=== PATIENT | female | born 1995 | race Two or more races ===

== ENCOUNTER 2023-01-07 14:50 | Emergency (ER) | payer MEDICAID, OTHER ==
[~2023-01-07] VITALS: Ht 167.6 cm; Wt 44.0 kg
[2023-01-07] MEDS ORDERED: ACETAMINOPHEN 500 MG TAB PO ONE (15:00)
[2023-01-07 16:03] VITALS: BP 139/82; PULSE 110; RESP 18; TEMP 98.6; O2SAT 98
[2023-01-07] MEDS ORDERED: CEPH500C PO (16:56)
[2023-01-07] MEDS ORDERED: HYDROcodone-ACET 10/325MG TAB PO ONE (17:00)
[2023-01-07] MEDS ORDERED: TETANUS-DIPTH-ACEL PERTUSSIS 0.5ML SYR Tdap IM ONE (17:00)
[2023-01-07] MEDS ORDERED: NEOMYCIN-BACITRACIN-POLYM UNITDOSE PKG TOP OINT TOP ONE (17:15)
== END 2023-01-07 17:31 | disposition home or self-care (01) ==
LOC: ER 14:50
DX: S62.631B Displaced fracture of distal phalanx of left index finger, initial encounter for open fracture (principal); W23.0XXA Caught, crushed, jammed, or pinched between moving objects, initial encounter; Y93.89 Activity, other specified; Y92.89 Other specified places as the place of occurrence of the external cause; Y99.8 Other external cause status
CPT/HCPCS: 73140; 90471; 90715